=== PATIENT | female | born 1940 | race Caucasian/White ===

== ENCOUNTER 2022-04-29 07:34 | Outpatient (CLI) | payer MEDICARE, OTHER ==
[2022-04-29] VITALS (18 sets, daily range): BP systolic 98–163; BP diastolic 56–102
== END 2022-04-29 23:59 | disposition home or self-care (01) ==
LOC: CARD DIAG 07:34
PROVIDERS: ATTEND Internal Medicine Interventional Cardiology
DX: R55 Syncope and collapse (principal)
CPT/HCPCS: 93660